=== PATIENT | male | born 1970 | race Two or more races ===

== ENCOUNTER 2018-08-11 21:38 | Emergency (ER) | payer OTHER ==
[~2018-08-11] VITALS: Ht 170.2 cm; Wt 75.5 kg
[2018-08-11 21:48] VITALS: BP 167/100
[2018-08-11] MEDS ORDERED: ASPIRIN 81 MG TABLET CHEW PO ONE (22:30)
--- NOTE | 2018-08-11 22:39 | NUR ---
PT REFUSING LAB DRAW AT THIS TIME. RN EXPLAINED TO NEED FOR LABS WITH HIS SPECIFIC COMPLAINTS. PT CONT TO REFUSE AND IS ASKING FOR FOOD.
[2018-08-11] MEDS ORDERED: ASPIRIN 81 MG TABLET CHEW ONE (22:43)
== END 2018-08-11 23:27 | disposition home or self-care (01) ==
LOC: ED 22:45
DX: R07.9 Chest pain, unspecified (principal); I10 Essential (primary) hypertension; F41.9 Anxiety disorder, unspecified; R06.00 Dyspnea, unspecified
CPT/HCPCS: 71045; 93005; 99284